=== PATIENT | male | born 1945 ===

== ENCOUNTER 2021-02-08 15:03 | Emergency (ER) | payer OTHER, MEDICAID ==
[~2021-02-08] VITALS: Ht 157.5 cm; Wt 58.1 kg
[2021-02-08 15:49] VITALS: BP 153/62
== END 2021-02-08 16:45 | disposition home or self-care (01) ==
LOC: ER 15:03
DX: M70.21 Olecranon bursitis, right elbow (principal); I10 Essential (primary) hypertension; M19.90 Unspecified osteoarthritis, unspecified site; Z86.73 Personal history of transient ischemic attack (TIA), and cerebral infarction without residual deficits
CPT/HCPCS: 10060